=== PATIENT | male | born 1950 | race Caucasian/White ===

== ENCOUNTER 2025-01-30 06:45 | Day surgery (SDC) | payer OTHER ==
[~2025-01-30] VITALS: Ht 170.2 cm; Wt 100.1 kg
[~2025-01-30 06:45] MED LIST: Lactated Ringer's 1,000 ML IV ONE
[2025-01-30] MEDS ORDERED: CeFAZolin Sodium 2,000 MG VIAL ONE (07:10)
[2025-01-30] MEDS ORDERED: NAPR500 (07:27)
--- NOTE | 2025-01-30 09:26 | NUR ---
01/30/25 0926 GuerinJuaquin cho PT MADE AWARE OF DELAY. NURSE HUMAN RESOURCES SERVICES SPECIALIST DEBORAH CAME IN TO SPEAK WITH PT AT 0800.
[2025-01-30] MEDS ORDERED: Lidocaine 2%-Epineph 1:100000 20 ML MDV ONE (10:49)
[2025-01-30] MEDS ORDERED: EPINEPhrine HCl 1 MG/ML 1ML Amp ONE (10:49)
[2025-01-30] MEDS ORDERED: Midazolam HCl 1MG / ML 2ML Vial ONE (11:05)
[2025-01-30] MEDS ORDERED: Lactated Ringer's 1,000 ML IV ONE ×2 (11:05→12:19)
[2025-01-30] MEDS ORDERED: FentaNYL Citrate 50 MCG/ML 2 ML Injection ONE (11:05)
[2025-01-30] MEDS ORDERED: propofoL 20 ML IV ONE ×2 (11:05→12:05)
[2025-01-30] MEDS ORDERED: Ketorolac Tromethamine 30mg Vial ONE (11:11)
[2025-01-30] MEDS ORDERED: Dexamethasone Sod Phos 10 MG/ML 1ML VIAL ONE (11:12)
[2025-01-30] MEDS ORDERED: Ondansetron HCl 2 MG / ML 2ML Vial ONE (11:12)
--- NOTE | 2025-01-30 11:49 | NUR ---
01/30/25 1149 Dior Medellin 1MG OF EPI ADDED TO FIRST BAG OF LR USED FOR JOINT IRRIGATION DURING CASE.
[2025-01-30] MEDS ORDERED: SuccINYLCHOLINE Chloride 100 MG/5 ML 5MLSYR ONE (12:11)
--- NOTE | 2025-01-30 12:45 | NUR ---
01/30/25 1245 MELVA SALINAS DENIES NAUSEA AND PAIN
[2025-01-30 12:52] VITALS: BP 135/62
--- NOTE | 2025-01-30 13:14 | NUR ---
01/30/25 1314 MELVA SALINAS UP IN CHAIR, TOLERATING COFFEE, ICE WATER. DENIES NAUSEA/PAIN. POLAR PACK CONNECTED TO PT AND OPERATING.
[2025-01-30] MEDS ORDERED: HYDROmorphone HCl/Pf 1MG SYR ONE (13:21)
== END 2025-01-30 14:03 | disposition home or self-care (01) ==
LOC: ORSCSDS 06:45
PROVIDERS: Orthopaedic Surgery
PROC: 0SJD4ZZ Inspection of Left Knee Joint, Percutaneous Endoscopic Approach (ICD-10-PCS; 2025-01-30)
PROC: 0MNP4ZZ Release Left Knee Bursa and Ligament, Percutaneous Endoscopic Approach (ICD-10-PCS; principal; 2025-01-30 08:45)
DX: M22.42 Chondromalacia patellae, left knee (principal); M22.2X2 Patellofemoral disorders, left knee; S83.242A Other tear of medial meniscus, current injury, left knee, initial encounter; S83.282A Other tear of lateral meniscus, current injury, left knee, initial encounter; G47.33 Obstructive sleep apnea (adult) (pediatric); E66.9 Obesity, unspecified; Z68.34 Body mass index [BMI] 34.0-34.9, adult; Z87.891 Personal history of nicotine dependence; Z79.82 Long term (current) use of aspirin
CPT/HCPCS: 82947; J0171; J0330; J0690; J1100; J1171; J1885; J2250; J2405; J2704; J3010; J7120

== ENCOUNTER 2025-08-29 09:41 | Day surgery (SDC) | payer OTHER ==
[~2025-08-29] VITALS: Ht 170.2 cm; Wt 95.0 kg
[~2025-08-29 09:41] MED LIST changes: +Aspir 8181 MG PO; +Balanced Salt Epinephrine Irrigation Solution 500 mL IR SCH; -Lactated Ringer's 1,000 ML IV ONE; +Moxifloxacin HCL 0.5 MG/0.1 ML 0.4MLSYR RIGHTEYE SCH; +NAPR500; +Ondansetron 4 MG SoluTab MM PRN; +PHENYLEPHRINE\\TROPICAMIDE\\TETRACAINE OPHTHALMIC DILATING SOLN RIGHTEYE PRN; +Povidone-Iodine 450 DROP/30 ML Solution ONE; +Povidone-Iodine 450 DROP/30 ML Solution RIGHTEYE SCH; +Tetracaine HCl/Pf 0.5% Opth Soln 4 ml ONE; +Triamcinolone Inj Susp 40 MG / ML 1ML Vial INJ SCH; +Triamcinolone Inj Susp 40 MG / ML 1ML Vial ONE
--- NOTE | 2025-08-29 10:05 | NUR ---
08/29/25 1005 Marissa Lyon ANXIETY UPON ARRIVAL WAS 03/07. VALIUM 10MG ADMINISTERED AT 0957. PULSE OXIMETRY IN PLACING SHOWING SP02 OF 98% ON RA. TETRACAINE IN AT 0959 PLEDGETT IN AT 1002 PT TOLERATED WELL SIDE RAILS UP, CALL LIGHT IN REACH
[2025-08-29] MEDS ORDERED: Tetracaine HCl 0.5% Opth Soln 15 ml RIGHTEYE ONE (10:49)
--- NOTE | 2025-08-29 10:56 | NUR ---
08/29/25 1056 Jens Lopez N 126/88 100% 10L BLOW BY O2 58 18
[2025-08-29 11:11] VITALS: BP 134/84
--- NOTE | 2025-08-29 11:17 | NUR ---
08/29/25 [id number] Aixa Regalado ATTEMPTED TO CALL X2, LEFT VOICEMAIL.
== END 2025-08-29 11:28 | disposition home or self-care (01) ==
LOC: ORSCSDS 09:41
PROVIDERS: Ophthalmology
PROC: 08RJ3JZ Replacement of Right Lens with Synthetic Substitute, Percutaneous Approach (ICD-10-PCS; principal; 2025-08-29 11:00)
DX: H25.811 Combined forms of age-related cataract, right eye (principal); H52.209 Unspecified astigmatism, unspecified eye
CPT/HCPCS: A9270; J3301; V2632